=== PATIENT | male | born 1950 | race Two or more races ===

== ENCOUNTER → 2021-10-22 | Outpatient (CLI) | payer OTHER ==
[~2021-10-22] MED LIST: IOHEXOL 300 MG/ML 100ML BOTTLE IJ ONE; OMNIPAQUE ORAL SOLN 500ml 12mg/ml PO ONE
[2021-10-22 08:37] LABS: BUN/Creatinine Ratio 12.3; Calcium 8.9 mg/dL (8.5-10.1)
== END | disposition home or self-care (01) ==
LOC: XYW 07:56
DX: K80.20 Calculus of gallbladder without cholecystitis without obstruction (principal); N28.1 Cyst of kidney, acquired; K63.89 Other specified diseases of intestine; R52 Pain, unspecified
CPT/HCPCS: 36415; 74177; 80048; Q9967